=== PATIENT | male | born 1985 | race Caucasian/White ===

== ENCOUNTER → 2017-02-28 | Outpatient (CLI) | payer OTHER ==
--- NOTE | 2017-02-28 08:05 | MR ---
EXAMINATION TYPE: MR lumbar spine wo con DATE OF EXAM: 02/28/2017 7:25 AM COMPARISON: NONE HISTORY: Low back pain into rt leg per patient. Low back pain per order. TECHNIQUE: Multiplanar, multisequence imaging of the lumbar spine is performed without IV contrast. FINDINGS: Sagittal images of the lumbar spine show vertebral body height to appear satisfactory. Stra ightening of lumbar spine is present. There is disc desiccation L4-L5 and L5-S1 levels. There is mild to moderate disc space narrowing with posterior disc herniation L4-L5 level on sagittal images. Othe rwise the intervertebral discs demonstrate normal heights and hydration. The conus medullaris is nor mal in position and signal ending at mid L1 vertebral body level. The bone marrow signal intensity i s within normal limits. No significant spurring is seen. Axial images show the T12-L1, L1-L2, L2-L3, L3-L4 levels all to appear within normal limits. Axial images at L4-L5 level show mild facet degenerative changes bilaterally. There is broad-based ri ght paracentral disc protrusion effacing anterior thecal sac and axial image 8, bilateral neural fora veronica remain patent. Axial images at the L5-S1 level are felt within normal limits. There is 2.6 cm simple appearing cyst medially lower pole level right kidney on axial image 14, there is additional subcentimeter round T2 hyperintense lesion laterally lower pole level and axial image 12 favoring simple cyst. IMPRESSION: Degenerative change L4-L5 level is seen with facet arthropathy and disc herniation effaci ng anterior thecal sac noted.
== END | disposition home or self-care (01) ==
LOC: RADMRIMAIN 06:44
PROVIDERS: ATTEND Family Medicine
DX: M51.26 Other intervertebral disc displacement, lumbar region (principal); M47.816 Spondylosis without myelopathy or radiculopathy, lumbar region; M46.96 Unspecified inflammatory spondylopathy, lumbar region
CPT/HCPCS: 72148

== ENCOUNTER → 2025-02-14 | Outpatient (CLI) | payer BC ==
--- NOTE | 2025-02-14 10:46 | US ---
EXAMINATION TYPE: US abdomen complete DATE OF EXAM: 02/14/2025 COMPARISON: NONE CLINICAL INDICATION: Male, 39 years old with history of R10.84 ABDOMINAL PAIN; abdominal pain x coupl e months TECHNIQUE: Grayscale and color Doppler imaging of the abdomen was performed. FINDINGS: EXAM MEASUREMENTS: Liver Length: 16.4 cm Gallbladder Wall: 0.2 cm CBD: 0.5 cm, color Doppler imaging was utilized to isolate the common bile duct for measurement. Spleen: 10.0 cm Right Kidney: 13.3x4.0x5.2 cm Left Kidney: 10.6x5.7x5.8 cm [employer] NOTES: slightly limited exam due to overlying bowel & rib shadow Pancreas: Tail obscured by overlying bowel gas Liver: wnl, no dilated ducts, masses or cysts., no definite abnormalities seen Gallbladder: No stones seen Evidence for sonographic Mccarthy's sign: No CBD: wnl Spleen: wnl Right Kidney: Anechoic area seen: 4.8x3.2x5.0cm Left Kidney: Multiple anechoic areas seen, Largest: 2.0x2.6x3.0cm Upper IVC: wnl Abd Aorta: wnl The liver is homogenous. The intrahepatic portion of the IVC and proximal abdominal aorta are within normal limits. There is no evidence of cholelithiasis. Common bile duct is unremarkable. The visu alized portions of the pancreas are homogenous. The spleen is unremarkable. Kidneys are symmetric a nd free of hydronephrosis. There are several benign-appearing thin-walled cysts scattered throughout the visualized portion of both kidneys. No follow-up necessary. IMPRESSION: Suboptimal study but No acute findings identified to account for patient's symptoms of ab dominal pain. [facility], , 02/14/2025 10:44 AM
== END | disposition home or self-care (01) ==
LOC: RADUSWWP 08:54
PROVIDERS: ATTEND Family Medicine
DX: R10.84 Generalized abdominal pain (principal)
CPT/HCPCS: 76700

== ENCOUNTER → 2025-02-23 | Outpatient (CLI) | payer BC ==
--- NOTE | 2025-02-23 18:38 | CT ---
EXAMINATION TYPE: CT abdomen pelvis wo con CT DLP: 296.1 mGycm, Automated exposure control for dose reduction was used. DATE OF EXAM: 02/23/2025 6:28 PM COMPARISON: Abdominal ultrasound 02/14/2025 CLINICAL INDICATION:Male, 39 years old with history of R19.4 CHANGE IN BOWEL HABIT; Abd pain that mov es throughout abdomen, but RLQ has been the worst. Started back at the end of November 02. TECHNIQUE: Standard CT of the abdomen and pelvis without IV or oral contrast. Lack of IV or oral co ntrast limits evaluation of solid and hollow organ viscera. Coronal and sagittal reformats were perfo rmed. FINDINGS: LOWER CHEST: Unremarkable noncontrast appearance ABDOMEN LIVER: Unremarkable noncontrast appearance GALLBLADDER AND BILE DUCTS: Unremarkable noncontrast appearance PANCREAS: Unremarkable noncontrast appearance SPLEEN: Unremarkable noncontrast appearance ADRENAL GLANDS: Unremarkable noncontrast appearance. KIDNEYS AND URETERS: No evidence of hydronephrosis. No right renal calculus. Nonobstructive left keith l 4 mm calculus.Inferior right renal lower pole 4.9 cm cyst. Left mid kidney 3.0 cm cyst. No follow-u p recommended. No definitive ureteral calculus. PELVIS BLADDER: Incompletely distended but grossly unremarkable. REPRODUCTIVE: Unremarkable noncontrast appearance ABDOMEN & PELVIS STOMACH AND BOWEL: Stomach and duodenum are unremarkable. No focal bowel wall thickening or surroundi ng inflammatory changes. The appendix is within normal limits. No evidence of bowel obstruction. PERITONEUM: No evidence of pneumoperitoneum or free fluid. VASCULATURE: No evidence of aortic aneurysm. MUSCULOSKELETAL: No acute osseous abnormalities. Degenerative disc disease at L4-L5 with disc space n arrowing, endplate sclerosis, vacuum disc disease, and anterior osteophytosis. Broad based disc bulge at this level resulting in mild central canal stenosis. LYMPH NODES: No gross evidence for lymphadenopathy. SOFT TISSUE/ABDOMINAL WALL: Unremarkable IMPRESSION: 1. No acute abdominal/pelvic process within limitations of a noncontrast exam. 2. Nonobstructive left renal calculus. [facility], , 02/23/2025 6:35 PM
== END | disposition home or self-care (01) ==
LOC: RADCTMAIN 17:32
PROVIDERS: ATTEND Family Medicine
DX: N20.0 Calculus of kidney (principal); R19.4 Change in bowel habit
CPT/HCPCS: 74176

== ENCOUNTER 2025-05-25 07:44 | Day surgery (SDC) | payer BC ==
[2025-05-25] MEDS: IV FLUID CONTINUATION 1,000 ML IV ONE ×2 (08:11→08:47)
[2025-05-25 08:13] VITALS: TEMP 98.5
[2025-05-25] MEDS: LACTATED RINGERS 1,000 ML IV SCH (08:20)
[2025-05-25] MEDS ORDERED: LIDOCAINE 2% (PF) 20 MG/ML 5 ML VIAL ONE (08:51)
[2025-05-25] MEDS ORDERED: PROPOFOL 10 MG/ML 20 ML VIAL IV ONE (08:51)
--- NOTE | 2025-05-25 09:11 | P.PCN ---
Date of Procedure: 05/25/25 Procedure(s) Performed: Brief history: Patient is a pleasant 39-year-old white male scheduled for an elective upper endoscopy as well as colonoscopy as a part of evaluation of diffuse abdominal pain for the last 6 months duration. Pain is mostly in the right upper quadrant area radiating to the right lower quadrant area and then diffusely all over the abdomen but no associated nausea vomiting or change in bowel habits Procedure performed: Esophagogastroduodenoscopy with biopsy Colonoscopy Preoperative diagnosis: Diffuse abdominal pain of 6 months duration Anesthesia: MAC Procedure: After informed consent was obtained from the patient was brought into the endoscopy unit and IV sedation was administered by anesthesia under continuous monitoring. Initially upper endoscopy was done. The Olympus GF 160 video endoscope was inserted inserted into the mouth and esophagus intubated without any difficulty and was gradually advanced into the stomach and duodenum and carefully examined. The bulb and second part of the duodenum appeared normal. The scope was then withdrawn into the stomach adequately insufflated with air and upon careful examination the antrum consistent with gastritis and biopsies were done from this area. Mucosa of the body, cardia and fundus appeared normal. The scope was then withdrawn into the esophagus. Small hiatal hernia noted. The GE junction was located at 40 cm to the incisors. It appeared regular with no erythema erosions or ulcerations. Rest of the esophagus appeared normal. Patient tolerated the procedure well. At this time the patient continued to remain sedation. Initial digital rectal examination was normal. Olympus CF 160 video colonoscope was then inserted into the rectum and gradually advanced to the cecum without any difficulty. Careful examination was performed as the scope was gradually being withdrawn. The prep was excellent. The cecum, ascending colon, transverse colon, descending colon, appear normal. The sigmoid colon there was a 2 cm submucosal lipoma noted. Scattered, diverticulosis seen. Rest of the sigmoid colon and rectum appeared normal. Retroflexion was performed in the rectum and no lesions were noted. Patient tolerated the procedure well. Impression: 1. Upper endoscopy revealed mild gastritis and small hiatal hernia 2. Colonoscopy revealed scattered diverticulosis and a 2 cm submucosal lipoma in the sigmoid colon. Recommendations: Findings of this examination were discussed with the patient as well as his family. He was advised to follow-up with the biopsy results. Recommended repeat screening colonoscopy in 10 years.
[2025-05-25 09:34] VITALS: BP 100/66; PULSE 84; RESP 16
== END 2025-05-25 09:52 | disposition home or self-care (01) ==
LOC: ORWHC2ENDO 07:44
PROVIDERS: ATTEND Internal Medicine Gastroenterology
DX: K21.9 Gastro-esophageal reflux disease without esophagitis (principal); K44.9 Diaphragmatic hernia without obstruction or gangrene; K29.70 Gastritis, unspecified, without bleeding; K57.30 Diverticulosis of large intestine without perforation or abscess without bleeding; D17.5 Benign lipomatous neoplasm of intra-abdominal organs
CPT/HCPCS: 88305; 45378; 43239; J2704; J2003